=== PATIENT | female | born 1980 | race Caucasian/White ===

== ENCOUNTER 2022-11-02 19:39 | Emergency (ER) | payer OTHER ==
[~2022-11-02] VITALS: Ht 170.2 cm; Wt 127.0 kg
[2022-11-02 20:00] VITALS: BP_SYST 158
--- NOTE | 2022-11-02 20:00 | NUR ---
Patient to ER bed 7 to gown for evaluation. Side rails up. Report given to Lia BARRIENTOS.
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
--- NOTE | 2022-11-02 20:07 | NUR ---
ER Dr. MCLEAN at bedside examining patient.
[2022-11-02] MEDS ORDERED: ACETAMINOPHEN 500 MG TABLET PO ONE (20:30)
[2022-11-02] MEDS ORDERED: KETOROLAC TROMETHAMINE 60 MG/2 ML VIAL IM ONE (20:30)
[2022-11-02] MEDS ORDERED: CYCLOBENZAPRINE HCL 10 MG TABLET (FLEXERIL) PO ONE (20:30)
[2022-11-02] MEDS ORDERED: CYCL10TA24 PO (20:49)
[2022-11-02] MEDS ORDERED: ACET-2634 PO (20:49)
[2022-11-02] MEDS ORDERED: IBUP-1969 PO (20:49)
[2022-11-02 21:06] VITALS: BP_SYST 150
--- NOTE | 2022-11-02 21:06 | NUR ---
Patient given written and verbal discharge instructions and verbalizes understanding. ER DR MCLEAN discussed with patient the results and treatment provided. Patient in stable condition. ID arm band removed. Rx of MOTRIN, TYLENOL, FLEXERIL given. Patient educated on pain management and to follow up with PMD. Pain Scale 2/10. Opportunity for questions provided and answered. Medication side effect fact sheet provided.
== END 2022-11-02 21:06 | disposition home or self-care (01) ==
LOC: SED 19:39
DX: S16.1XXA Strain of muscle, fascia and tendon at neck level, initial encounter (principal); S39.012A Strain of muscle, fascia and tendon of lower back, initial encounter; S63.502A Unspecified sprain of left wrist, initial encounter; S40.212A Abrasion of left shoulder, initial encounter; Z79.899 Other long term (current) drug therapy; V89.2XXA Person injured in unspecified motor-vehicle accident, traffic, initial encounter; Y93.89 Activity, other specified; Y92.89 Other specified places as the place of occurrence of the external cause; Y99.8 Other external cause status
CPT/HCPCS: 99283; 71045; 96372; J1885

== ENCOUNTER 2023-09-15 20:25 | Emergency (ER) | payer OTHER ==
[~2023-09-15] VITALS: Ht 170.2 cm; Wt 126.6 kg
[~2023-09-15 20:25] MED LIST: ACET-2634 PO; CYCL10TA24 PO; IBUP-1969 PO
[2023-09-15 20:37] VITALS: BP_SYST 185; PULSE 116; RESP 19; TEMP 97.8; O2SAT 100
[2023-09-15 21:30] LABS: BASOPHILS # (AUTO) 0.1 K/uL (0.0-0.2); EOSINOPHILS # (AUTO) 0.1 K/uL (0.0-0.4); HEMATOCRIT 35.4 % (36-48); HEMOGLOBIN 12.2 g/dL (12.0-16.0); LYMPHOCYTES # (AUTO) 2.7 K/uL (1.0-5.5); LYMPHOCYTES % (AUTO) 39.5 % (20.5-51.5); MEAN CORPUSCULAR HEMOGLOBIN 34 pg (27-31); MEAN CORPUSCULAR HGB CONC 34 % (32-36); MEAN CORPUSCULAR VOLUME 98 fL (79.0-98.0); MONOCYTES # (AUTO) 0.4 K/uL (0.0-1.0); MONOCYTES % (AUTO) 6.6 % (1.7-9.3); NEUTROPHILS # (AUTO) 3.5 K/uL (1.8-7.7); NEUTROPHILS % (AUTO) 51.9 % (40.0-70.0); PLATELET COUNT (AUTO) 286 K/uL (130-430); RED CELL DISTRIBUTION WIDTH 12.8 % (9.0-15.0); WHITE BLOOD COUNT (AUTO) 6.7 K/uL (4.8-10.8)
[2023-09-15 21:36] LABS: BILIRUBIN,URINE NEGATIVE (NEGATIVE); BLOOD, URINE 2+ (NEGATIVE); COLOR,URINE YELLOW (YELLOW); GLUCOSE,URINE NEGATIVE (NEGATIVE); KETONES,URINE NEGATIVE (NEGATIVE); LEUKOCYTE ESTERASE ,URINE NEGATIVE (NEGATIVE); NITRITE, URINE NEGATIVE (NEGATIVE); PH,URINE 5.5 (5.0-8.0); PROTEIN URINE NEGATIVE (NEGATIVE); UROBILINOGEN,URINE 0.2 (0.2-1.0)
[2023-09-15 21:38] LABS: POTASSIUM 3.7 mmol/L (3.5-5.1)
[2023-09-15 21:39] LABS: ALBUMIN 3.7 g/dL (3.4-4.8); BILIRUBIN,DIRECT 0.1 mg/dL (0.0-0.3); CALCIUM 8.4 mg/dL (8.4-11.0); CREATININE 0.95 mg/dL (0.55-1.30); TOTAL BILIRUBIN 0.2 mg/dL (0.0-1.0); TOTAL PROTEIN, SERUM 7.7 g/dL (6.4-8.3)
[2023-09-15 21:39] LABS: CLARITY/URINE SLIGHTLY CLOUDY (CLEAR)
[2023-09-15 22:06] LABS: BACTERIA,URINE FEW /HPF (None Seen); WBC,URINE 0-3 /HPF (0-3)
[2023-09-15] MEDS: KETOROLAC TROMETHAMINE 60 MG/2 ML VIAL IM ONE (22:46)
[2023-09-16] MEDS ORDERED: TRAM50TA2 PO (00:30)
[2023-09-16] MEDS ORDERED: IBUP-1969 PO (00:30)
== END 2023-09-16 00:40 | disposition home or self-care (01) ==
LOC: SED 20:25
DX: N94.6 Dysmenorrhea, unspecified (principal); R10.9 Unspecified abdominal pain; Z79.899 Other long term (current) drug therapy
CPT/HCPCS: 99285; 74176; 80076; 80048; 81001; 83690; 85025; 36415; 81025; 96372; 81000; 81015; J1885

== ENCOUNTER 2023-11-02 17:12 | Emergency (ER) | payer OTHER ==
[~2023-11-02] VITALS: Ht 167.6 cm; Wt 122.5 kg
[~2023-11-02 17:12] MED LIST changes: +TRAM50TA2 PO
[2023-11-02 17:39] VITALS: BP_SYST 150; PULSE 97; RESP 19; TEMP 98.7; O2SAT 97
[2023-11-02] MEDS: KETOROLAC TROMETHAMINE 30 MG VIAL IM ONE (18:48)
[2023-11-02] MEDS: ACETAMINOPHEN 500 MG TABLET PO ONE (18:48)
[2023-11-02] MEDS ORDERED: CIPR10DR17 BOTH EARS (18:54)
== END 2023-11-02 19:04 | disposition home or self-care (01) ==
LOC: SED 17:12
DX: H60.93 Unspecified otitis externa, bilateral (principal); Z79.899 Other long term (current) drug therapy; Z79.2 Long term (current) use of antibiotics
CPT/HCPCS: 99283; 96372; J1885